=== PATIENT | female | born 1975 | race African-American/Black ===

== ENCOUNTER 2022-09-12 05:58 | Day surgery (SDC) | payer OTHER ==
[2022-09-12 06:27] VITALS: BMI 34.4
[2022-09-12] MEDS ORDERED: FAMOTIDINE 20 MG TABLET PO ONE (06:51)
[2022-09-12] MEDS ORDERED: diphenhydrAMINE HCL 25 MG CAPSULE (FP) PO ONE ×3 (06:51→18:23)
[2022-09-12] MEDS ORDERED: DEXAMETHASONE SOD PHOSPHATE 10 MG/1 ML VIAL IM ONE (06:51)
[2022-09-12 06:58] LABS: PH,URINE 7.5 (5.0-8.0); URINE APPEARANCE CLEAR; URINE BILIRUBIN NEGATIVE (NEGATIVE); URINE COLOR YELLOW; URINE GLUCOSE (UA) NEGATIVE (NEGATIVE); URINE KETONE TRACE (NEGATIVE); URINE LEUK ESTERASE NEGATIVE (NEGATIVE); URINE NITRITE NEGATIVE (NEGATIVE); URINE PROTEIN TRACE (NEGATIVE); URINE UROBILINOGEN 0.2 mg/dL (0.2-1.0)
[2022-09-12 07:01] LABS: HCG,QUALITATIVE URINE Negative
[2022-09-12] MEDS ORDERED: FAMOTIDINE 20 MG TABLET ONE (07:26)
[2022-09-12] MEDS ORDERED: FAMOTIDINE 20 MG/50 ML IVPB 20 MG/50 ML MG IVPB ONE (07:41)
[2022-09-12 09:25] LABS: BASO % 0.4 % (0-2.0); EOS % 3.9 % (0-4.5); HEMATOCRIT 33.7 % (32.4-45.2); LYMPH % 25.7 % (8-40); MCH 23.4 pg (25.7-33.7); MCHC 32.7 g/dl (32.0-36.0); MEAN CELL VOLUME 71.5 fl (80-96); MEAN PLT VOLUME 7.9 fl (7.5-11.1); MONO % 7.7 % (3.8-10.2); NEUT % 62.3 % (42.8-82.8); PLATELET COUNT 375 10^3/uL (134-434); RBC 4.71 M/mm3 (3.60-5.2); RDW 15.3 % (11.6-15.6); WHITE BLOOD COUNT 5.4 K/mm3 (4.0-10.0)
[2022-09-12 09:29] LABS: INR 1.07 (0.83-1.09); PROTHROMBIN TIME (PATIENT) 12.4 SEC (9.7-13.0)
[2022-09-12 09:32] LABS: ACTIVATED PTT 27.4 SECONDS (25.2-36.5)
[2022-09-12 09:42] LABS: CALCIUM 9.6 mg/dL (8.5-10.1)
[2022-09-12 09:43] LABS: ALBUMIN 4.1 g/dl (3.4-5.0); BLOOD UREA NITROGEN 12.7 mg/dL (7-18)
[2022-09-12 09:47] LABS: BILIRUBIN,TOTAL 0.2 mg/dL (0.2-1); TOT PROT 8.1 g/dl (6.4-8.2)
[2022-09-12] MEDS ORDERED: ONDANSETRON 4 MG/2 ML VIAL IVPUSH ONE (10:00)
[2022-09-12] MEDS ORDERED: ACETAMINOPHEN 1000 MG/100 ML BAG IVPB ONE (10:00)
[2022-09-12] MEDS ORDERED: morphine SULFATE 4 MG/ML VIAL IVPUSH ONE (11:40)
[2022-09-12] MEDS ORDERED: morphine CARPU-JECT 4 MG/1 ML DISP.SYRIN IVPUSH ONE (11:40)
[2022-09-12] MEDS ORDERED: morphine SULFATE 4 MG/ML VIAL ONE (12:38)
[2022-09-12] MEDS ORDERED: HYDROmorphone HCl 2 MG/ML VIAL IVPUSH ONE (16:00)
[2022-09-12] MEDS ORDERED: HYDROmorphone HCL CARPU-JECT 2 MG/1 ML DISP.SYRIN IVPUSH ONE (16:00)
[2022-09-12] MEDS ORDERED: HYDROmorphone HCl 2 MG/ML VIAL ONE (16:55)
[2022-09-12] MEDS: INSULIN SLIDING SCALE (NOVOLOG) 1 VIAL SQ SCH (17:48)
[2022-09-12] MEDS: diphenhydrAMINE HCL 25 MG CAPSULE (FP) PO PRN (18:23)
[2022-09-12] MEDS: morphine SULFATE 4 MG/ML VIAL IVPUSH PRN (21:28)
[2022-09-12] MEDS ORDERED: INSULIN (LEVEMIR) 100 UNITS/ML UNITS SQ SCH (22:00)
[2022-09-12] MEDS ORDERED: EPINEPHrine 1:1,000 0.3 MG/0.3 ML SYR IM ONE (22:38)
[2022-09-13] MEDS: morphine SULFATE 4 MG/ML VIAL IVPUSH PRN ×2 (01:09→09:26)
[2022-09-13] MEDS: KETOROLAC TROMETHAMINE 15 MG/ML VIAL IVPUSH PRN ×2 (03:32→15:03)
[2022-09-13] MEDS ORDERED: ACETAMINOPHEN 1000 MG/100 ML BAG IVPB ONE ×2 (05:09→18:26)
[2022-09-13] MEDS ORDERED: DEXTROSE 5%-0.45% SALINE 1,000 ML IV SCH (08:00)
[2022-09-13] MEDS: INSULIN SLIDING SCALE (NOVOLOG) 1 VIAL SQ SCH ×3 (08:19→16:36)
[2022-09-13] MEDS ORDERED: INSULIN (LEVEMIR) 100 UNITS/ML UNITS SQ ONE (08:22)
[2022-09-13] MEDS ORDERED: INSULIN (NOVOLOG) ASPART 100 UNITS/ML 10ML VIAL ONE (08:22)
[2022-09-13] MEDS: diphenhydrAMINE HCL 25 MG CAPSULE (FP) PO PRN (09:26)
[2022-09-13] MEDS ORDERED: HYDROmorphone HCl 2 MG/ML VIAL IVPUSH PRN (11:25)
[2022-09-13 11:38] LABS: BLOOD UREA NITROGEN 25.4 mg/dL (7-18); CALCIUM 9.7 mg/dL (8.5-10.1)
[2022-09-13 11:41] LABS: CREATININE 1.1 mg/dL (0.55-1.3)
[2022-09-13] MEDS ORDERED: HYDROmorphone HCl 2 MG/ML VIAL IVPB PRN (13:19)
[2022-09-13] MEDS ORDERED: PROPOFOL 40 ML ONE (17:18)
[2022-09-13] MEDS ORDERED: LIDOCAINE HCL/PF 2% SDV 5ML VIAL ONE (17:19)
[2022-09-13] MEDS ORDERED: ACETAMINOPHEN INJECTION 100 ML IVPB ONE ×2 (17:27→18:46)
[2022-09-13] MEDS ORDERED: ACETAMINOPHEN 325 MG TABLET (FP) PO PRN (17:42)
[2022-09-13] MEDS ORDERED: ACETAMINOPHEN WITH CODEINE 300MG/30MG TABLET PO PRN (17:43)
[2022-09-13] MEDS ORDERED: MIDAZOLAM HCL 2 MG/2 ML SINGLE DOSE VIAL ONE (17:43)
[2022-09-13] MEDS ORDERED: ONDANSETRON 4 MG/2 ML VIAL ONE (18:10)
[2022-09-13] MEDS ORDERED: oxyCODONE HCL 5 MG TABLET PO PRN (18:24)
[2022-09-13] MEDS ORDERED: ONDANSETRON 4 MG/2 ML VIAL IVPUSH PRN (18:24)
[2022-09-13] MEDS ORDERED: LACTATED RINGERS SOLUTION 1,000 ML IV SCH (18:30)
[2022-09-13] MEDS ORDERED: KETOROLAC TROMETHAMINE 15 MG/ML VIAL IVPUSH PRN (19:12)
[2022-09-13] MEDS: HYDROmorphone HCl 2 MG/ML VIAL IVPB PRN (20:49)
[2022-09-13] MEDS ORDERED: INSULIN (LEVEMIR) 100 UNITS/ML UNITS SQ SCH (22:00)
[2022-09-14] MEDS: HYDROmorphone HCl 2 MG/ML VIAL IVPB PRN ×2 (02:01→06:31)
[2022-09-14] MEDS: INSULIN SLIDING SCALE (NOVOLOG) 1 VIAL SQ SCH ×2 (06:38→11:36)
[2022-09-14 09:08] VITALS: RESP 20
[2022-09-14] MEDS ORDERED: diphenhydrAMINE HCL 25 MG CAPSULE (FP) PO PRN (11:22)
[2022-09-14] MEDS ORDERED: amLODIPine BESYLATE 5 MG TABLET (FP) PO SCH (11:30)
[2022-09-14 14:00] VITALS: BP 155/94; PULSE 86; TEMP 98.9
== END 2022-09-14 15:10 | disposition home or self-care (01) ==
LOC: JER 05:58 → JERBED 12:57 → INTOOBSV 12:57 → UNDOADMOB 12:57 → JERBED 15:07 → J8W 21:39 → JASUSAT 09-13 13:57 → SUATTDRO 09-13 13:57 → J8W 09-13 14:32 → JASUSAT 09-14 15:10
PROVIDERS: ATTEND Nurse Practitioner Family
PROC: 0T778DZ Dilation of Left Ureter with Intraluminal Device, Via Natural or Artificial Opening Endoscopic (ICD-10-PCS; principal; 2022-09-13 17:30)
DX: N13.0 Hydronephrosis with ureteropelvic junction obstruction (principal); N13.2 Hydronephrosis with renal and ureteral calculous obstruction
CPT/HCPCS: 36415; 74176-TC; 76000-TC-FY; 80048; 80053; 81003; 82962; 84703; 85025; 85610; 85730; 86850; 86900; 86901; 87086; 93005; 93010; 94760; 99285-25; C1758; C2617; C9803-CS; J1100; U0003; U0005

== ENCOUNTER 2024-01-18 06:35 | Observation (INO) | payer OTHER ==
[2024-01-18 06:42] VITALS: BMI 31.5
[2024-01-18] MEDS ORDERED: ACETAMINOPHEN INJECTION 100 ML IVPB ONE (08:28)
[2024-01-18] MEDS ORDERED: ONDANSETRON 4 MG/2 ML VIAL ONE ×2 (08:28→14:42)
[2024-01-18] MEDS: ACETAMINOPHEN 1000 MG/100 ML BAG IVPB ONE (08:30)
[2024-01-18 09:21] LABS: EPI CELLS >36 /uL (0-25.1); HYALINE CASTS 6 /uL (0-3.1); PH,URINE 6.5 (5.0-8.0); URINE APPEARANCE CLEAR; URINE BACTERIA 496 /uL (0-1359); URINE BILIRUBIN NEGATIVE (NEGATIVE); URINE COLOR YELLOW; URINE GLUCOSE (UA) TRACE (NEGATIVE); URINE KETONE NEGATIVE (NEGATIVE); URINE LEUK ESTERASE NEGATIVE (NEGATIVE); URINE NITRITE NEGATIVE (NEGATIVE); URINE PROTEIN 1+ (NEGATIVE); URINE RBC 26 /uL (0-23.9); URINE WBC 23 /uL (0-25.8)
[2024-01-18 09:39] LABS: BASO % 0.9 % (0-2.0); EOS % 2.7 % (0-4.5); HEMATOCRIT 34.4 % (32.4-45.2); HEMOGLOBIN 11.2 GM/dL (10.7-15.3); LYMPH % 27.6 % (8-40); MCH 22.9 pg (25.7-33.7); MCHC 32.4 g/dl (32.0-36.0); MEAN CELL VOLUME 70.6 fl (80-96); MEAN PLT VOLUME 7.8 fl (7.5-11.1); MONO % 6.2 % (3.8-10.2); NEUT % 62.6 % (42.8-82.8); PLATELET COUNT 366 10^3/uL (134-434); RBC 4.88 M/mm3 (3.60-5.2); RDW 16.1 % (11.6-15.6); WHITE BLOOD COUNT 6.1 K/mm3 (4.0-10.0)
[2024-01-18] MEDS: ONDANSETRON 4 MG/2 ML VIAL IVPUSH ONE ×2 (09:50→14:49)
[2024-01-18] MEDS: morphine CARPU-JECT 2 MG/1 ML DISP.SYRIN IVPUSH ONE (09:54)
[2024-01-18 09:56] LABS: POTASSIUM 3.7 mmol/L (3.5-5.1)
[2024-01-18 09:58] LABS: CALCIUM 9.9 mg/dL (8.5-10.1)
[2024-01-18 09:59] LABS: ALBUMIN 4.4 g/dl (3.4-5.0); BLOOD UREA NITROGEN 7.2 mg/dL (7-18); MAGNESIUM 2.3 mg/dL (1.8-2.4)
[2024-01-18] MEDS: SODIUM CHLORIDE 0.9% 500 ML INFUS.BAG IV ONE (09:59)
[2024-01-18 10:02] LABS: CREATININE 0.8 mg/dL (0.55-1.3); PHOSPHOROUS 3.1 mg/dL (2.5-4.9)
[2024-01-18 10:03] LABS: BILIRUBIN,TOTAL 0.5 mg/dL (0.2-1); TOT PROT 8.6 g/dl (6.4-8.2)
[2024-01-18] MEDS ORDERED: morphine SULFATE 4 MG/ML VIAL ONE (10:27)
[2024-01-18] MEDS: morphine CARPU-JECT 4 MG/1 ML DISP.SYRIN IVPUSH ONE (10:38)
[2024-01-18] MEDS ORDERED: KETOROLAC TROMETHAMINE 30 MG/1 ML VIAL ONE (11:44)
[2024-01-18] MEDS: KETOROLAC TROMETHAMINE 30 MG/1 ML VIAL IVPUSH ONE (11:50)
[2024-01-18 12:20] VITALS: RESP 20
[2024-01-18 12:55] LABS: URINE APPEARANCE CLEAR; URINE BILIRUBIN NEGATIVE (NEGATIVE); URINE COLOR YELLOW; URINE GLUCOSE (UA) NEGATIVE (NEGATIVE); URINE KETONE NEGATIVE (NEGATIVE); URINE LEUK ESTERASE NEGATIVE (NEGATIVE); URINE NITRITE NEGATIVE (NEGATIVE); URINE PROTEIN NEGATIVE (NEGATIVE); URINE UROBILINOGEN 0.2 mg/dL (0.2-1.0)
[2024-01-18] MEDS ORDERED: HYDROmorphone HCl 2 MG/ML VIAL ONE (14:53)
[2024-01-18] MEDS: HYDROmorphone HCl 2 MG/ML VIAL IVPUSH ONE (14:57)
[2024-01-18 16:40] VITALS: BP 136/82; PULSE 98; TEMP 97.8
[2024-01-18] MEDS ORDERED: KETOROLAC TROMETHAMINE 15 MG/ML VIAL IVPUSH PRN (16:52)
[2024-01-18] MEDS: LACTATED RINGERS SOLUTION 1,000 ML/1,000 ML INFUS.BAG IV SCH (18:05)
[2024-01-18] MEDS: INSULIN ASPART SLIDING SCALE (NOVOLOG) 1 VIAL SQ SCH (18:06)
[2024-01-18] MEDS ORDERED: ACETAMINOPHEN 500 MG TABLET (FP) ONE (20:31)
[2024-01-18] MEDS: ACETAMINOPHEN 500 MG TABLET (FP) PO PRN (20:45)
[2024-01-18] MEDS ORDERED: SENNOSIDES 8.6MG TABLET (FP) PO PRN (22:00)
== END 2024-01-19 02:43 | disposition left against medical advice (07) ==
LOC: JER 06:35 → JERBED 16:08
PROVIDERS: ADMIT Internal Medicine; ATTEND Internal Medicine
PROC: 3E033GC Introduction of Other Therapeutic Substance into Peripheral Vein, Percutaneous Approach (ICD-10-PCS; principal; 2024-01-18)
PROC: 3E013VG Introduction of Insulin into Subcutaneous Tissue, Percutaneous Approach (ICD-10-PCS; 2024-01-18)
PROC: 3E0337Z Introduction of Electrolytic and Water Balance Substance into Peripheral Vein, Percutaneous Approach (ICD-10-PCS; 2024-01-18)
PROC: 3E0333Z Introduction of Anti-inflammatory into Peripheral Vein, Percutaneous Approach (ICD-10-PCS; 2024-01-18)
DX: N13.30 Unspecified hydronephrosis (principal); N20.9 Urinary calculus, unspecified; R10.9 Unspecified abdominal pain; E11.9 Type 2 diabetes mellitus without complications; L30.9 Dermatitis, unspecified; N28.1 Cyst of kidney, acquired; Z88.0 Allergy status to penicillin; R10.32 Left lower quadrant pain
CPT/HCPCS: 74176-TC; 76830-TC; 80053; 81003; 82962; 83036; 83735; 84100; 84702; 84703; 85025; 87086; 93005; 93010; 99285-25; G0378